=== PATIENT | male | born 1950 | race Caucasian/White ===

== ENCOUNTER 2018-11-04 09:19 | Emergency (ER) | payer MEDICARE, MEDICAID ==
--- NOTE | 2018-11-04 10:59 | EDM.PDOC ---
ED HPI GENERAL MEDICAL PROBLEM - General Chief Complaint: General Stated Complaint: LEFT SHOULDER PAIN/NUMBNESS FINGERS,HIGH BP Time Seen by Provider: 11/04/18 10:35 Source of Information: Reports: Patient History Limitations: Reports: No Limitations - History of Present Illness INITIAL COMMENTS - FREE TEXT/NARRATIVE: 68-year-old male with 1 month history of intermittent fevers and chills, left arm discomfort with intermittent paresthesias of the left hand. He is actually feeling much better, stopped his blood pressure medicines one week ago because they thought they were affecting his pulse and blood pressure. Some shortness of breath with activity intermittently. He has no cardiac history. He just came in to make sure he "didn't have a heart attack". He had no rash, nausea vomiting , diarrhea, his main complaints were intermittent fevers and chills, diaphoresis and left arm and chest discomfort with some left arm paresthesias. The symptoms have been going on for a month. He has no symptoms currently. Onset: Unknown/Unsure Associated Symptoms: Reports: Chest Pain, Cough, Diaphoresis, Fever/Chills, Loss of Appetite, Malaise, Shortness of Breath, Weakness. Denies: Nausea/ Vomiting Left Arm Pain Score (Numeric/FACES): 3 - Related Data Allergies Allergy/AdvReac Type Severity Reaction Status Date / Time No Known Allergies Allergy Verified 11/04/18 09:59 Home Meds: Home Meds Diltiazem [Diltiazem XR] 240 mg PO DAILY 11/04/18 [History] Lisinopril 40 mg PO DAILY 11/04/18 [History] Past Medical History Cardiovascular History: Reports: Hypertension Gastrointestinal History: Reports: Diverticulosis Genitourinary History: Reports: Chronic Renal Insuffiency, Other (See Below) Other Genitourinary History: renal faliure while in [place] for colon surgery. bladder problems Musculoskeletal History: Reports: Fracture Psychiatric History: Reports: Depression, PTSD - Past Surgical History GI Surgical History: Reports: Appendectomy, Colon, Lysis of Adhesions Other GI Surgeries/Procedures: resection 2003 Social & Family History - Tobacco Use Smoking Status *Q: Former Smoker Used Tobacco, but Quit: Yes Month/Year Tobacco Last Used: 20 years - Caffeine Use Caffeine Use: Reports: Coffee - Recreational Drug Use Recreational Drug Use: No ED ROS GENERAL - Review of Systems Review Of Systems: See Below Constitutional: Reports: Fever, Chills, Malaise, Decreased Appetite HEENT: Reports: No Symptoms Respiratory: Reports: Shortness of Breath Cardiovascular: Reports: Chest Pain (Especially with activity left upper shoulder area) GI/Abdominal: Denies: Abdominal Pain, Nausea, Vomiting : Reports: No Symptoms Skin: Reports: Diaphoresis Neurological: Reports: Numbness (Some tingling and numbness in his left hand). Denies: Headache ED EXAM, GENERAL - Physical Exam Exam: See Below Exam Limited By: No Limitations General Appearance: Alert, No Apparent Distress Eye Exam: Bilateral Eye: Normal Inspection Head: Atraumatic Neck: Supple, Non-Tender Respiratory/Chest: No Respiratory Distress, Lungs Clear Cardiovascular: Regular Rate, Rhythm, No Murmur. No: Tachycardia, Extra Beats GI/Abdominal: Non-Tender Extremities: Normal Inspection, Pedal Edema (Patient has just a trace of ankle edema which is symmetric) Neurological: Alert, Oriented, No Motor/Sensory Deficits Psychiatric: Normal Affect, Normal Mood Skin Exam: Warm, Dry EKG INTERPRETATION Rhythm: NSR Course - Vital Signs Last Recorded V/S: Last Vital Signs Temp 97.3 F 11/04/18 09:58 Pulse 93 11/04/18 09:58 Resp 14 11/04/18 09:58 BP 177/81 H 11/04/18 09:58 Pulse Ox 96 11/04/18 09:58 - Orders/Labs/Meds Orders: Active Orders 24 hr Category Date Time Status EKG Documentation Completion [RC] ASDIRECTED Care 11/04/18 10:36 Active EKG 12 Lead [EK] Routine Ther 11/04/18 10:36 Ordered Labs: Laboratory Tests 11/04/18 11/04/18 Range/Units 10:43 10:43 WBC 7.4 (4.5-11.0) K/uL RBC 3.72 L (4.30-5.90) M/uL Hgb 11.3 L (12.0-15.0) g/dL Hct 34.1 L (40.0-54.0) % MCV 92 (80-98) fL MCH 30 (27-31) pg MCHC 33 (32-36) % Plt Count 287 (150-400) K/uL Neut % (Auto) 52 (36-66) % Lymph % (Auto) 34 (24-44) % [place] % (Auto) 11 H (2-6) % Eos % (Auto) 2 (2-4) % Baso % (Auto) 2 H (0-1) % Sodium 141 (140-148) mmol/L Potassium 4.2 (3.6-5.2) mmol/L Chloride 103 (100-108) mmol/L Carbon Dioxide 29 (21-32) mmol/L Anion Gap 8.8 (5.0-14.0) mmol/L BUN 14 (7-18) mg/dL Creatinine 1.0 (0.8-1.3) mg/dL Est Cr Clr Drug Dosing 76.52 mL/min Estimated GFR (MDRD) > 60 (>60) Glucose 116 H (74-106) mg/dL Calcium 9.1 (8.5-10.1) mg/dL Total Bilirubin 0.6 (0.2-1.0) mg/dL AST 24 (15-37) U/L ALT 27 (12-78) U/L Alkaline Phosphatase 78 (46-116) U/L Troponin I < 0.017 (0.000-0.056) ng/mL Total Protein 8.2 (6.4-8.2) g/dL Albumin 3.8 (3.4-5.0) g/dL Globulin 4.4 H (2.3-3.5) g/dL Albumin/Globulin Ratio 0.9 L (1.2-2.2) - Re-Assessments/Exams Free Text/Narrative Re-Assessment/Exam: 11/04/18 10:58 EKG was done which showed normal sinus rhythm. CBC CMP and troponin also obtained. 11/04/18 11:15 Patient remained stable and asymptomatic, CBC returned with a normal white count and hemoglobin of 11.3. CMP normal other than a mildly elevated glucose, troponin was negative. Patient was reassured. 11/04/18 11:25 Copies of the patient's labs were made for the patient, no treatment at this time. I did recommend he restart his lisinopril. Departure - Departure Time of Disposition: 11:36 Disposition: Home, Self-Care 01 Clinical Impression: Chills with fever - Discharge Information Instructions: Fever, Adult, [id number] Referrals: Aroldo Lyons Sr, MD [Primary Care Provider] - Forms: ED Department Discharge Care Plan Goals: Consider restarting lisinopril, increase activity and diet as tolerated and recheck at any time if symptoms recur or you develop other concerns. - My Orders Last 24 Hours: My Active Orders 11/04/18 10:36 EKG Documentation Completion [RC] ASDIRECTED EKG 12 Lead [EK] Routine - Assessment/Plan Last 24 Hours: My Active Orders 11/04/18 10:36 EKG Documentation Completion [RC] ASDIRECTED EKG 12 Lead [EK] Routine
== END 2018-11-04 11:36 | disposition home or self-care (01) ==
LOC: JP.ED 09:19
DX: R50.9 Fever, unspecified (principal); I12.9 Hypertensive chronic kidney disease with stage 1 through stage 4 chronic kidney disease, or unspecified chronic kidney disease; N18.9 Chronic kidney disease, unspecified; Z87.891 Personal history of nicotine dependence; Z79.899 Other long term (current) drug therapy
CPT/HCPCS: 36415; 80053; 84484; 85025; 93005; 93010; 99283; 99283-25

== ENCOUNTER 2019-11-03 07:32 | Emergency (ER) | payer MEDICARE, MEDICAID ==
--- NOTE | 2019-11-03 07:37 | EDM.PDOC ---
ED HPI GENERAL MEDICAL PROBLEM - General Chief Complaint: Genitourinary Problem Stated Complaint: PAIN IN GROIN AREA Time Seen by Provider: 11/03/19 07:45 Source of Information: Reports: Patient History Limitations: Reports: No Limitations - History of Present Illness INITIAL COMMENTS - FREE TEXT/NARRATIVE: The patient states he has had ongoing genitourinary problems stemming from when he had a catheter placed and then was placed in a "G-suit". He has a file folder full of papers regarding his genitourinary problems in the past. He denies ever being cared for by genitourinary surgeon. States he does not have a primary care physician. Does have paperwork from 2 previous surgeons who have moved out of [facility] and he claims that they are under investigation by the [facility]. The patient exhibits obvious flight of thought. He wants to tell me his history from decades ago. I have great difficulty determining his chief complaint for the ED visit today. Apparently he has had some discharge from the end of his penis and genitourinary pain at night. Denies fevers. Complains of a swelling in his right groin area, but this is chronic and ongoing for years. States he wants an antibiotic. Onset: Other (Chronic, states he has had pain in his groin area that is keeping him from sleep and that is why he is here in the ED today) Duration: Chronic Location: Reports: Other (Right groin and penis) Quality: Reports: Sharp Severity: Moderate (Interferes with his sleeping at night) Pelvic Pain Score (Numeric/FACES): 5 - Related Data Allergies Allergy/AdvReac Type Severity Reaction Status Date / Time No Known Allergies Allergy Verified 11/03/19 07:57 Home Meds: Home Meds NK [No Known Home Meds] 11/03/19 [History] Past Medical History Cardiovascular History: Reports: Hypertension Gastrointestinal History: Reports: Diverticulosis Genitourinary History: Reports: Chronic Renal Insuffiency, Other (See Below) Other Genitourinary History: renal faliure while in [place] for colon surgery. bladder problems Musculoskeletal History: Reports: Fracture Psychiatric History: Reports: Depression, PTSD - Past Surgical History GI Surgical History: Reports: Appendectomy, Colon, Lysis of Adhesions Other GI Surgeries/Procedures: resection 2004 Social & Family History - Caffeine Use Caffeine Use: Reports: Coffee ED ROS GENERAL - Review of Systems Review Of Systems: See Below Constitutional: Denies: Fever Cardiovascular: Reports: No Symptoms GI/Abdominal: Reports: No Symptoms : Reports: Discharge, Pain Skin: Reports: No Symptoms Psychiatric: Reports: Agitation ED EXAM, RENAL/ - Physical Exam Exam: See Below General Appearance: Alert, WD/WN, No Apparent Distress Ears: Normal External Exam Respiratory/Chest: No Respiratory Distress Cardiovascular: Normal Peripheral Pulses GI/Abdominal: Normal Bowel Sounds (Male) Exam: No Hernia, Normal Inspection, Circumcised. No: Inguinal Lymphadenopathy, Penile Lesions, Rash, Scrotal Swelling, Testicular Mass, Urethral Discharge Back Exam: Normal Inspection, Full Range of Motion Extremities: Normal Inspection, Normal Range of Motion Course - Vital Signs Last Recorded V/S: Last Vital Signs Temp 36.3 C 11/03/19 07:56 Pulse 71 11/03/19 07:56 Resp 16 11/03/19 07:56 BP 197/89 H 11/03/19 07:56 Pulse Ox 98 11/03/19 07:56 - Orders/Labs/Meds Labs: Laboratory Tests 11/03/19 Range/Units 07:50 Urine Color Yellow (YELLOW) Urine Appearance Clear (CLEAR) Urine pH 6.0 (5.0-8.0) Ur Specific [place] 1.015 (1.008-1.030) Urine Protein Negative (NEGATIVE) mg/dL Urine Glucose (UA) Negative (NEGATIVE) mg/dL Urine Ketones Negative (NEGATIVE) mg/dL Urine Occult Blood Negative (NEGATIVE) Urine Nitrite Negative (NEGATIVE) Urine Bilirubin Negative (NEGATIVE) Urine Urobilinogen 0.2 (0.2-1.0) EU/dL Ur Leukocyte Esterase Negative (NEGATIVE) Urine RBC Not seen (0-5) Urine WBC Not seen (0-5) Ur Epithelial Cells Not seen Amorphous Sediment Rare Urine Bacteria Not seen Urine Mucus Not seen Departure - Departure Time of Disposition: 08:10 Disposition: Home, Self-Care 01 Condition: Good Clinical Impression: Dysuria - Discharge Information Referrals: PCP,None [Primary Care Provider] - Forms: ED Department Discharge Additional Instructions: No evidence on physical exam and laboratory studies of any infection. He did not have any fever, inguinal lymphadenopathy, penile discharge, or scrotal swelling on physical exam. Urinalysis shows no bacteria and no white blood cells. There is no indication for any antibiotic therapy at this time. Follow- up with your primary care physician for ongoing urinary complaints. Sepsis Event Note (ED) - Focused Exam Vital Signs: Vital Signs Temp Pulse Resp BP Pulse Ox 11/03/19 07:56 36.3 C 71 16 197/89 H 98 11/03/19 07:44 36.3 C 71 16 197/89 H 98
== END 2019-11-03 08:21 | disposition home or self-care (01) ==
LOC: JP.ED 07:32
DX: R30.0 Dysuria (principal); N18.9 Chronic kidney disease, unspecified; I12.9 Hypertensive chronic kidney disease with stage 1 through stage 4 chronic kidney disease, or unspecified chronic kidney disease
CPT/HCPCS: 81001; 99283